=== PATIENT | female | born 1950 | race Caucasian/White ===

== ENCOUNTER 2019-09-12 15:11 | Emergency (ER) | payer MEDICARE, SELFPAY ==
--- NOTE | ~2019-09-12 | CT_ITS ---
EXAMINATION: CT abdomen pelvis w con DATE: 09/12/2019 16:45 INDICATION: Left flank pain, abdominal pain for 3 days TECHNIQUE: Computed tomography (CT) of the abdomen and pelvis was performed with 100 cc Omnipaque 350 intravenous contrast. Automated exposure control and iterative reconstruction technique were employe d. Exam dose: 330.38 mGy-cm total exam DLP. COMPARISON: None. FINDINGS: The lung bases are clear of infiltrate or consolidation. Right lower lobe calcified pulmona ry granuloma. Normal heart size. No pericardial or pleural effusion. Small sliding hiatal hernia. The liver, gallbladder, bile ducts, spleen, pancreas, pancreatic duct, and adrenal glands are unremar kable. There are a couple of probable right renal cysts, the larger cyst measuring 8 mm. No urinary t ract calculus or hydroureteronephrosis. Normal caliber of the abdominal aorta. There is atherosclerotic calcification of the abdominal aorta and iliac arteries. No intraperitoneal or retroperitoneal or pelvic mass lesion or adenopathy or asci sahra. The urinary bladder, uterus and adnexal areas are unremarkable. No bowel obstruction, bowel wall thickening, pneumatosis or intraperitoneal free air. Included skeletal structures are unremarkable. IMPRESSION: Small sliding hiatal hernia Reviewed, dictated and finalized at [facility]. Reviewed, dictated and finalized at [facility]. IMPRESSION: Small sliding hiatal hernia
[2019-09-12 15:12] VITALS: BP 141/100; PULSE 58; RESP 18; TEMP 36.8; O2SAT 100
--- NOTE | 2019-09-12 15:42 | ED.BACK ---
HPI - Back Pain/Injury General Chief Complaint: Back Pain/Injury Stated Complaint: L flank pain x 3 days Time Seen by Provider: 09/12/19 15:28 Source: patient Mode of arrival: ambulatory Limitations: no limitations History of Present Illness HPI Narrative: This is a 69 year old female that presents to the ER for left sided mid back pain x 3 days. Reports no known injury or trauma. Reports the pain has been a constant dull ache. She has been taking Tylenol at home with some relief. Reports the pain radiates to the left side of her abdomen. Denies fever, nausea, vomiting, dysuria, or hematuria. Related Data Home Medications Medication Instructions Recorded Confirmed atorvastatin 09/12/19 omeprazole 09/12/19 valacyclovir 09/12/19 Allergies Allergy/AdvReac Type Severity Reaction Status Date / Time No Known Allergies Allergy Mild Verified 09/12/19 15:28 Review of Systems Review of Systems: Narrative: CONSTITUTIONAL: Denies fever CARDIOVASCULAR: Denies chest pain RESPIRATORY: Denies dyspnea. GASTROINTESTINAL: Reports abdominal pain. Denies nausea, vomiting, or diarrhea. GENITOURINARY: Denies dysuria or hematuria. MUSCULOSKELETAL: Reports back pain All systems reviewed & are unremarkable except as noted in HPI and below PMFSH Past Medical History Medical History (Updated 09/12/19 @ 17:29 by Lisset Shoemaker PA-C) History of gastroesophageal reflux (GERD) History of hyperlipidemia Family History Family History (Updated 10/08/15 @ 23:19 by DOCTOR UNKNOWN) Mother Hypertension Family history of coronary artery disease Family history of malignant neoplasm of breast in first degree relative Father Cerebrovascular accident Other Diabetes mellitus Social History Social History Alcohol intake: current Gender identity (if verbalized by the patient): Female Exam Narrative: Exam Narrative: GENERAL: Well-appearing, well-nourished, and in no acute distress. HEAD: Normocephalic, atraumatic. EYES: EOMI. CHEST: Clear to auscultation. No respiratory distress. No wheezes rales or rhonchi HEART: Regular rate and rhythm. No murmur heard. Normal peripheral pulses. ABDOMEN: Soft, nondistended, normal active bowel sounds. No tenderness to palpation of the left side of the abdomen, without guarding BACK: No midline spinal tenderness EXTREMITIES: Normal range of motion. No edema. SKIN: Warm, dry, no rash. NEURO: No focal deficits. Alert and oriented x3. PSYCH: Normal mood and affect Course Vital Signs Vital signs: Vital Signs Temperature 98.3 F 09/12/19 15:12 Pulse Rate 58 L 09/12/19 15:12 Respiratory Rate 18 09/12/19 15:12 Blood Pressure 141/100 H 09/12/19 15:12 Pulse Oximetry 100 09/12/19 15:12 Temperature 98.3 F 09/12/19 15:12 Pulse Rate 58 L 09/12/19 15:12 Respiratory Rate 18 09/12/19 15:12 Blood Pressure 141/100 H 09/12/19 15:12 Pulse Oximetry 100 09/12/19 15:12 MDM - Back Pain/Injury MDM Narrative Medical decision making narrative: Patient presents the emergency department for left-sided back pain radiating to the abdomen x3 days. Patient is afebrile and nontoxic-appearing. CBC is without acute findings. Metabolic panel without concerning changes. Lipase is not elevated. UA without evidence of infection. D-dimer is not elevated. CT scan abdomen and pelvis is without acute findings. Patient was updated on case findings. Has an appointment to follow-up with her primary in 3 days. Patient is stable and felt appropriate for further outpatient evaluation. She was given warnings to return to the ER Lab Data Attestation: I reviewed the patient's lab results. Result diagrams: 09/12/19 15:50 09/12/19 15:50 Labs: Lab Results 09/12/19 09/12/19 09/12/19 Range/Units 15:50 15:50 15:50 WBC 6.5 (4.5-10.0) K/mm3 RBC 4.57 (4.2-5.4) M/mm3 Hgb 14.5 (12.0-15.0) g/dL Hct 43.2 (37.0-47.0) % MCV 94.5 (80-100) f
[2019-09-12 15:56] LABS: Basophils Absolute Auto 0.1 K/mm3 (0.0-0.1); Basophils Percent Auto 0.8 % (0.2-1.2); Eosinophils Absolute Auto 0.1 K/mm3 (0-0.3); Eosinophils Percent Auto 1.2 % (0-4.4); Hematocrit 43.2 % (37.0-47.0); Hemoglobin 14.5 g/dL (12.0-15.0); Immature Granulocyte Absolute 0.01 K/mm3 (0.00-0.031); Immature Granulocyte Percent A 0.2 % (0-0.5); Lymphocytes Absolute Auto 2.04 K/mm3 (0.9-3.2); Lymphocytes Percent Auto 31.4 % (18.3-44.2); Mean Corpuscular HGB Conc 33.6 g/dl (32-36); Mean Corpuscular Hemoglobin 31.7 pg (26-34); Mean Corpuscular Volume 94.5 fl (80-100); Mean Platelet Volume 12.1 fl (7.4-10.4); Monocytes Absolute Auto 0.4 K/mm3 (0.1-0.6); Monocytes Percent Auto 6.8 % (2.6-8.5); Neutrophils Absolute Auto 3.9 K/mm3 (1.3-6.7); Neutrophils Percent Auto 59.6 % (45.5-73.1); Platelet Count Result 204 k/mm3 (150-375); Red Blood Count 4.57 M/mm3 (4.2-5.4); Red Cell Distribution Width 13.6 % (11.5-14.5); White Blood Count 6.5 K/mm3 (4.5-10.0)
[2019-09-12 15:59] LABS: Add Urine Microscopic? NO; Appearance Urine Clear (Clear); Bilirubin Urine Negative (Negative); Blood Urine Negative (Negative); Color Urine Colorless (Yellow); Glucose Urine UA Negative (Negative); Ketones Urine Negative (Negative); Leukocyte Esterase Ur Negative LEU/UL (Negative); Nitrate Urine Negative (Negative); Protein Urine Negative (Negative); Specific Grav Ur 1.004 (1.001-1.035); Urobilinogen Urine Negative mg/dL (<2.0)
[2019-09-12 16:07] LABS: Alanine Aminotransferase 38 U/L (4-35); Albumin Level 4.4 g/dL (3.5-5.1); Alkaline Phosphatase 85 U/L (38-126); Aspartate Amino Transferase 42 U/L (14-36); Bilirubin,Total 0.5 mg/dL (0.2-1.3); Blood Urea Nitrogen 18 mg/dL (7-17); Calcium 9.1 mg/dL (8.4-10.2); Carbon Dioxide 30 mmol/L (22-30); Chloride 98 mmol/L (98-107); Estimated CRCL calculation 53 ml/min; Estimated Glomerular Filt Rate > 60; Glucose 107 mg/dL (65-105); Lipase 102 U/L (23-300); Potassium 4.3 mmol/L (3.4-5.0); Sodium 136 mmol/L (137-145)
[2019-09-12 16:09] LABS: D Dimer 0.27 ug/mL (<0.48)
[2019-09-12 17:41] VITALS: BP 139/89; PULSE 75; RESP 15; O2SAT 100
== END 2019-09-12 17:42 | disposition home or self-care (01) ==
PROVIDERS: Physician Assistant; Emergency Provider Emergency Medicine; PCP Internal Medicine
DX: M54.6 Pain in thoracic spine (principal); E78.5 Hyperlipidemia, unspecified; K21.9 Gastro-esophageal reflux disease without esophagitis; K44.9 Diaphragmatic hernia without obstruction or gangrene
CPT/HCPCS: 36415; 74177; 80053; 81003; 83690; 85025; 85380; 99284; Q9967

== ENCOUNTER 2019-12-31 14:10 | Emergency (ER) | payer MEDICARE, SELFPAY ==
--- NOTE | 2019-12-31 14:19 | ED.GENADULT ---
HPI - General Adult General Chief complaint: Ear Stated complaint: ear pain/popping Time Seen by Provider: 12/31/19 14:20 Source: patient Mode of arrival: ambulatory Limitations: no limitations History of Present Illness HPI narrative: 69-year-old female patient presents to the [facility] with complaints of bilateral ear fullness. Patient states she has been having a roaring noise to bilateral ears. Patient states that kind of feels like she is underwater. Patient states she is also had a little bit of a stuffy and runny nose as well as some watery eyes. Denies any itching to the eyes. Denies any fever, body aches or chills. Denies any sore throat, coughing, chest pain or shortness of breath. Related Data Home Medications Medication Instructions Recorded Confirmed atorvastatin 20 mg DAILY 09/12/19 Adult Aspirin 81 mg DAILY 12/31/19 12/31/19 Allergies Allergy/AdvReac Type Severity Reaction Status Date / Time No Known Allergies Allergy Mild Verified 09/12/19 15:28 Review of Systems Review of Systems: Narrative: CONSTITUTIONAL: Denies fever, chills, or sweats. EYES: Denies visual changes, redness, or discharge. ENT: Positive rhinorrhea, congestion, denies sore throat, positive bilateral otalgia. CARDIOVASCULAR: Denies chest pain, palpitations, or edema. RESPIRATORY: Denies cough or dyspnea. GASTROINTESTINAL: Denies abdominal pain, nausea, vomiting, or diarrhea. GENITOURINARY: Denies dysuria or hematuria. SKIN: Denies rash or itching. MUSCULOSKELETAL: Denies back pain, joint pain, or myalgia. NEUROLOGIC: Denies headache, numbness, or weakness. PSYCHIATRIC: Denies anxiety or depression. [facility] Past Medical History Medical History History of gastroesophageal reflux (GERD) History of hyperlipidemia Family History Family History Mother Hypertension Family history of coronary artery disease Family history of malignant neoplasm of breast in first degree relative Father Cerebrovascular accident Other Diabetes mellitus Social History Social History Alcohol intake: current Gender identity (if verbalized by the patient): Female Comments At the time of my signature I agree with nursing past medical history, surgical, social, and family history. There is no relevant family history pertinent to the presenting complaint. Exam Narrative: Exam Narrative: GENERAL: Well-appearing, well-nourished, and in no acute distress. HEAD: Normocephalic, atraumatic. EYES: PERRLA and EOMI. ENT: Nares with erythema and edema noted bilaterally, patent, no rhinorrhea or epistaxis. Mucous membranes moist. Posterior pharynx with no erythema, tonsillar edema, exudates or lesions present. Bilateral TMs do have some fluid noted behind the tympanic membrane. NECK: Supple. No lymphadenopathy CHEST: Clear to auscultation. No respiratory distress. HEART: Regular rate and rhythm. No murmur heard. Normal peripheral pulses. ABDOMEN: Soft, nontender, nondistended, normal active bowel sounds. EXTREMITIES: Normal range of motion. No edema. SKIN: Warm, dry, no rash. NEURO: No focal deficits. Alert and oriented x3. Course Vital Signs Vital signs: Vital Signs Temperature 36.3 C L 12/31/19 14:23 Pulse Rate 59 L 12/31/19 14:23 Respiratory Rate 18 12/31/19 14:23 Blood Pressure 146/80 H 12/31/19 14:23 Pulse Oximetry 100 12/31/19 14:23 Temperature 36.3 C L 12/31/19 14:25 Pulse Rate 59 L 12/31/19 14:25 Respiratory Rate 18 12/31/19 14:25 Blood Pressure 146/80 H 12/31/19 14:25 Pulse Oximetry 100 12/31/19 14:25 Vital signs reviewed. The patient has been informed that they may have pre-hypertension or Hypertension based on a BP reading in the department. I recommend that the patient call the primary care provider listed on their discharge instructions
[2019-12-31 14:23] VITALS: BP 146/80; PULSE 59; RESP 18; TEMP 36.3; O2SAT 100
[2019-12-31 14:25] VITALS: BP 146/80; PULSE 59; RESP 18; TEMP 36.3; O2SAT 100
== END 2019-12-31 14:37 | disposition home or self-care (01) ==
PROVIDERS: Emergency Provider Nurse Practitioner Family; PCP Internal Medicine
DX: H93.93 Unspecified disorder of ear, bilateral (principal); K21.9 Gastro-esophageal reflux disease without esophagitis; E78.5 Hyperlipidemia, unspecified
CPT/HCPCS: 99213; G0463

== ENCOUNTER 2021-01-20 15:00 | Emergency (ER) | payer MEDICARE, SELFPAY ==
--- NOTE | ~2021-01-20 | XR_ITS ---
EXAMINATION: XR lumbar spine 2-3V EXAM DATE: 01/20/2021 15:56 INDICATION: Low back pain after heavy lifting Dec./pain right side. TECHNIQUE: Lumber spine frontal, lateral, lateral L5-S1 projections for interpretation. There is no prior study for comparison. FINDINGS: There is mild compression fracture of T12 vertebral body at the superior endplate, age ind eterminate. Mild to moderate disc disease at T12-L1. Mild disc disease at other lumbar levels. There is moderate lower lumbar facet arthropathy. Sacrum, sacroiliac joints, sacral arcuate lines are intac t. Paraspinal soft tissue is unremarkable. IMPRESSION: 1. T12 age-indeterminate compression fracture. Reviewed, dictated and finalized at [facility]
[2021-01-20 15:20] VITALS: BP 132/77; PULSE 57; RESP 16; TEMP 36.3; O2SAT 100
--- NOTE | 2021-01-20 15:31 | ED.BACK ---
HPI - Back Pain/Injury General Chief Complaint: Back Pain/Injury Stated Complaint: Lower Back Pain Source: patient and RN notes reviewed Mode of arrival: ambulatory History of Present Illness HPI Narrative: This is a 70-year-old female that presented to urgent care with lower back pain to the right side in [facility]. According to the patient on hollowing she was lifting sarah and twisted her body and has been experiencing lower back pain since pain. Patient has used heat with cold Biofreeze and ibuprofen while at home with no improvement. Patient was requesting a x-ray, x-ray completed. She will be sent home with ibuprofen Flexeril and a small dose of Ellsworth. The patient denies SOB, CP, palpitation, extremity numbness, lightheadedness, dizziness, constipation, diarrhea, no neurovascular deficiencies, incontinence, no shooting radiation pains down her lower extremities chills, or fever. She notes that she experienced the most pain when standing upright. She does not have a history of prior back pain MD elicited complaint: back pain and back injury Related Data Home Medications Medication Instructions Recorded Confirmed atorvastatin 20 mg DAILY 09/12/19 01/20/21 Adult Aspirin 81 mg DAILY 12/31/19 01/20/21 nitroglycerin 0.4 mg SUBLINGUAL PRN PRN 01/20/21 01/20/21 omeprazole 20 mg PO DAILY 01/20/21 01/20/21 Allergies Allergy/AdvReac Type Severity Reaction Status Date / Time No Known Allergies Allergy Mild Verified 01/20/21 15:19 Review of Systems Review of Systems: A 14 organ system Review of Systems was performed and pertinent positives included in the HPI, otherwise remaining ROS is negative. [facility] Past Medical History Medical History History of gastroesophageal reflux (GERD) History of hyperlipidemia Family History Family History Mother Hypertension Family history of coronary artery disease Family history of malignant neoplasm of breast in first degree relative Father Cerebrovascular accident Other Diabetes mellitus Social History Social History Alcohol intake: current Gender identity (if verbalized by the patient): Female Exam Narrative: GENERAL: This is a well-nourished, well-developed patient, in no apparent distress. HEAD: normocephalic, atraumatic. EYES: PERRL. Sclera clear/white. Vision is grossly intact. EARS: External ears normal, auditory canals clear and without drainage, TMs normal without perforation. Hearing grossly intact. NOSE: External nose normal with no obvious nasal discharge, nares without redness, no rhinorrhea. THROAT: Mucous membranes moist, posterior pharynx clear. NECK: Neck supple, non-tender without lymphadenopathy, masses or thyromegaly. CARDIOVASCULAR: Regular rate and rhythm without murmurs, gallops, or rubs. RESPIRATORY: Clear to auscultation. Breath sounds equal bilaterally. No wheezes, rales, or rhonchi. GASTROINTESTINAL: Abdomen soft, non-tender, nondistended. Bowel sounds are active. No hepato-splenomegaly, or palpable masses. No guarding. SKIN: warm, intact with no suspicious lesions or rash, good texture and turgor. NEURO: awake, alert, and oriented to person, place and time. There were no obvious focal neurologic abnormalities. Steady gait EXTREMITIES: Normal range of motion. No edema. No calf tenderness. Negative Homans sign bilaterally. BACK: Nontender without deformity or crepitance. No flank tenderness. Course Course Emergency Course: Patient will be sent home with Flexeril, ibuprofen and a short dose of Ellsworth for back pain. Instructed to continue hot cold packs and any exercise that with improve her back pain she will also need to follow-up with orthopedic surgeon Vital Signs Vital signs: Vital Signs Temperature 97.3 F L 01/20/21 15:20 Pulse Rate 57 L 01/20/21 15:20 Respirato
== END 2021-01-20 16:30 | disposition home or self-care (01) ==
PROVIDERS: Emergency Provider Nurse Practitioner; PCP Internal Medicine
DX: M54.50 Low back pain, unspecified (principal); M48.54XA Collapsed vertebra, not elsewhere classified, thoracic region, initial encounter for fracture; G21.9 Secondary parkinsonism, unspecified; E78.5 Hyperlipidemia, unspecified
CPT/HCPCS: 72100; 99213; G0463

== ENCOUNTER 2021-08-19 15:11 | Emergency (ER) | payer MEDICARE, SELFPAY ==
--- NOTE | 2021-08-19 15:23 | ED.URI ---
HPI - URI/Sore Throat General Chief Complaint: Upper Respiratory Infection Stated Complaint: sorethroat Time Seen by Provider: 08/19/21 15:27 Source: patient Mode of arrival: ambulatory Limitations: no limitations History of Present Illness HPI Narrative: Ms. Pozo is a 71-year-old female patient presenting to the clinic today with complaints of sore throat and nasal drainage x3 days. She denies any fever or chills. She denies any known diabetic with COVID, flu, or strep. Related Data Home Medications Medication Instructions Recorded Confirmed atorvastatin 20 mg tablet 20 tablet DAILY 08/19/21 08/19/21 omeprazole 20 mg capsule,delayed 20 cap DAILY 08/19/21 08/19/21 release Allergies Allergy/AdvReac Type Severity Reaction Status Date / Time No Known Allergies Allergy Mild Verified 08/19/21 15:51 Review of Systems Review of Systems: Pertinent positives per HPI. Patient denies any fever, chills, rash, headache, visual changes, dizziness, cough, runny nose, shortness of breath, chest pain, palpitations, nausea, vomiting, diarrhea, constipation, abdominal pain, or any urinary issues. [facility] Past Medical History Medical History History of gastroesophageal reflux (GERD) History of hyperlipidemia Family History Family History Mother Hypertension Family history of coronary artery disease Family history of malignant neoplasm of breast in first degree relative Father Cerebrovascular accident Other Diabetes mellitus Social History Social History Alcohol intake: current Gender identity (if verbalized by the patient): Female Comments At the time of my signature, I reviewed and agree with the nursing past medical, surgical, social, and family history. There is no relevant family history pertinent to the patient complaint. Exam Narrative: General: Well-developed, well nourished, in no apparent distress Head: Normocephalic, atraumatic Eyes: Pupils equally round and reactive to light bilaterally, EOM intact, sclera and conjunctive clear, no discharge, lids normal Ears: TMs intact and clear, ear canals clear, no drainage, grossly hearing normal. Nose: Nares patent, clear nasal discharge, moderate inflammation, no sinus tenderness. Mouth: Oropharynx without lesions or masses, good dentition, MMM. Postnasal drip Neck: Supple, trachea midline, no enlargement of anterior or posterior cervical nodes, no thyroid masses or goiter palpable. Cardio: Regular rate and rhythm, s1 and s2 normal, no murmur appreciated. Resp: Clear to auscultation bilaterally anteriorly and posteriorly, no rhonchi, rales, wheezing or rubs Course Course Emergency Course: Portions of this record may have been created with voice recognition software. Level of Care: Express Care Visit Vital Signs Vital signs: Vital Signs Temperature 36.7 C 08/19/21 15:32 Pulse Rate 58 L 08/19/21 15:32 Respiratory Rate 18 08/19/21 15:32 Blood Pressure 132/72 08/19/21 15:32 Pulse Oximetry 100 08/19/21 15:32 Oxygen Delivery Room Air 08/19/21 15:32 Temperature 36.7 C 08/19/21 15:32 Pulse Rate 58 L 08/19/21 15:32 Respiratory Rate 18 08/19/21 15:32 Blood Pressure 132/72 08/19/21 15:32 Pulse Oximetry 100 08/19/21 15:32 Oxygen Delivery Room Air 08/19/21 15:32 Vital signs reviewed MDM - URI/Sore Throat MDM Narrative Medical decision making narrative: At the time of visit patient is resting comfortably on the exam table. COVID and everything was negative in the clinic. Supportive measures were discussed with the patient she voiced understanding of discharge instructions. I will go ahead and give her a course of prednisone to help with the congestion. Differential Diagnosis Differential diagnosis: Likely upper respirator
[2021-08-19 15:32] VITALS: BP 132/72; PULSE 58; RESP 18; TEMP 36.7; O2SAT 100
== END 2021-08-19 16:20 | disposition home or self-care (01) ==
PROVIDERS: Emergency Provider Nurse Practitioner Family
DX: R09.82 Postnasal drip (principal); J02.9 Acute pharyngitis, unspecified; J06.9 Acute upper respiratory infection, unspecified; Z20.822 Contact with and (suspected) exposure to COVID-19; K21.9 Gastro-esophageal reflux disease without esophagitis; E78.5 Hyperlipidemia, unspecified
CPT/HCPCS: 87081; 87426; 87880; 99213; C9803; G0463

== ENCOUNTER 2022-01-11 11:07 | Emergency (ER) | payer MEDICARE, SELFPAY ==
[2022-01-11 11:24] VITALS: BP 126/65; PULSE 78; RESP 18; TEMP 38; O2SAT 96
--- NOTE | 2022-01-11 11:45 | ED.URI ---
HPI - URI/Sore Throat General Chief Complaint: Upper Respiratory Infection Stated Complaint: cough,sorethroat Time Seen by Provider: 01/11/22 11:45 Source: patient Mode of arrival: ambulatory Limitations: no limitations History of Present Illness HPI Narrative: 71 year female presents with with complaint runny nose, sore throat, nasal congestion, cough, fatigue, low-grade fevers for 4 days. Taking [id number] with little relief. States that her was sick prior to her but felt better after a few days. Reports can not seem to kick It . alert and talkative. No respiratory distress. All systems reviewed and negative except as noted above. Related Data Home Medications Medication Instructions Recorded Confirmed atorvastatin 20 mg tablet 20 tablet DAILY 08/19/21 01/11/22 omeprazole 20 mg capsule,delayed 20 cap DAILY 08/19/21 01/11/22 release aspirin 81 mg tablet,delayed 81 mg PO DAILY 01/11/22 01/11/22 release (Adult Low Dose Aspirin) cholecalciferol (vitamin D3) 250 250 mcg PO DAILY 01/11/22 01/11/22 mcg (10,000 unit) tablet Allergies Allergy/AdvReac Type Severity Reaction Status Date / Time No Known Allergies Allergy Mild Verified 01/11/22 11:50 Review of Systems Review of Systems: CONSTITUTIONAL: Report fever, chills, or sweats. EYES: Denies visual changes, redness, or discharge. ENT: reports rhinorrhea, congestion, sore throat, or otalgia. CARDIOVASCULAR: Denies chest pain, palpitations, or edema. RESPIRATORY: reports cough. Denies dyspnea. GASTROINTESTINAL: Denies abdominal pain, nausea, vomiting, or diarrhea. GENITOURINARY: Denies dysuria or hematuria. SKIN: Denies rash or itching. MUSCULOSKELETAL: Denies back pain, joint pain, or myalgia. NEUROLOGIC: Denies headache, numbness, or weakness. PSYCHIATRIC: Denies anxiety or depression. All other systems reviewed are negative, except as documented in HPI. [facility] Past Medical History Medical History History of gastroesophageal reflux (GERD) History of hyperlipidemia Family History Family History Mother Hypertension Family history of coronary artery disease Family history of malignant neoplasm of breast in first degree relative Father Cerebrovascular accident Other Diabetes mellitus Social History Social History Alcohol intake: current Gender identity (if verbalized by the patient): Female Comments At time of signature, agree with nursing past medical, surgical, social and family history. There is no relevant family history pertinent to the presenting complaint. Exam Narrative: GENERAL: This is a well-nourished, well-developed patient, in no apparent distress. HEAD: normocephalic, atraumatic. EYES: PERRL. Sclera clear/white. Vision is grossly intact. EARS: External ears normal, auditory canals clear and without drainage, TMs normal without perforation. Hearing grossly intact. NOSE: External nose normal with clear nasal drainage, erythema to both nares without edema, moderate congestion. No sinus tenderness. THROAT: Mucous membranes moist . Mild erythema to posterior neck is without swelling. No Exudates. NECK: Neck supple, non-tender without lymphadenopathy, masses or thyromegaly. CARDIOVASCULAR: Regular rate and rhythm without murmurs, gallops, or rubs. RESPIRATORY: Clear to auscultation. Breath sounds equal bilaterally. No wheezes, rales, or rhonchi. SKIN: warm, Dry, intact with no suspicious lesions or rash, good texture and turgor. NEURO: awake, alert, and oriented to person, place and time. There were no obvious focal neurologic abnormalities. EXTREMITIES: No joint tenderness, effusion, or edema noted. Course Course Level of Care: Express Care Visit Vital Signs Vital signs: Vital Signs Temperature 38.0
== END 2022-01-11 12:04 | disposition home or self-care (01) ==
PROVIDERS: Emergency Provider Nurse Practitioner Family
DX: U07.1 COVID-19 (principal); K21.9 Gastro-esophageal reflux disease without esophagitis; E78.5 Hyperlipidemia, unspecified
CPT/HCPCS: 87426; 87804; 87880; 99213; C9803; G0463

== ENCOUNTER 2023-09-30 18:38 | Emergency (ER) | payer MEDICARE, SELFPAY ==
[2023-09-30 18:47] VITALS: BP 141/91; PULSE 74; RESP 18; TEMP 36.4; O2SAT 97
--- NOTE | 2023-09-30 19:34 | ED.URI ---
HPI - URI/Sore Throat General Chief Complaint: Upper Respiratory Infection Stated Complaint: Sore Throat Source: patient Mode of arrival: ambulatory Limitations: no limitations History of Present Illness HPI Narrative: 73-year-old female presents to [facility] complains of 2 week history of sore throat, chills, cough, congestion and fatigue. Patient reports that she had 1 day of low-grade fever of 99.5. Patient has been taking [id number] DayQuil using Chloraseptic spray with little relief. Patient is nonsmoker. Patient denies recent travel. MD elicited complaint: sore throat, rhinorrhea and nasal congestion Onset (ago): week(s) (2) Able to tolerate fluids by mouth: Yes Exacerbating factors: nothing Relieving factors: nothing Related Data Home Medications Medication Instructions Recorded Confirmed atorvastatin 20 mg tablet 20 tablet DAILY 08/19/21 09/30/23 omeprazole 20 mg capsule,delayed 20 cap DAILY 08/19/21 09/30/23 release aspirin 81 mg tablet,delayed 81 mg PO DAILY 01/11/22 09/30/23 release (Adult Low Dose Aspirin) cholecalciferol (vitamin D3) 250 250 mcg PO DAILY 01/11/22 09/30/23 mcg (10,000 unit) tablet benazepril 5 mg tablet 5 mg PO DAILY 09/30/23 09/30/23 Allergies Allergy/AdvReac Type Severity Reaction Status Date / Time No Known Allergies Allergy Mild Verified 09/30/23 18:50 Review of Systems Constitutional: Constitutional: Reports chills, Reports fatigue, Reports fever(s) and Denies weakness ENT: Denies dysphagia, Denies vertigo, Denies dizziness, Denies epistaxis, Reports nasal congestion and Reports sore throat Respiratory: Respiratory: Reports cough, Denies dyspnea and Denies wheezing Gastrointestinal: Gastrointestinal: Denies diarrhea, Denies nausea and Denies vomiting Musculoskeletal: Musculoskeletal: Denies arthralgias and Denies joint swelling Integumentary/Breasts: Skin/Breast: Denies pruritus, Denies erythema, Denies rash and Denies skin ulcer Neurologic: Denies dizziness, Denies syncope and Denies headache(s) [facility] Past Medical History Medical History History of gastroesophageal reflux (GERD) History of hyperlipidemia Family History Family History Mother Hypertension Family history of coronary artery disease Family history of malignant neoplasm of breast in first degree relative Father Cerebrovascular accident Other Diabetes mellitus Social History Social History Alcohol intake: current Gender identity (if verbalized by the patient): Female Comments At time of signature, I agree with nursing past medical, surgical, social and family history. There is no relevant family history pertinent to the presenting complaint. Exam Const: General: healthy appearing and no acute distress Nutritional Appearance: well nourished Orientation/consciousness: patient oriented x3 Limitations: no limitations HENMT: Head: normal to inspection Ears: external ears normal, TM's normal bilaterally and EAC's normal Face and sinus: normal facial exam Mouth: Yes Normal oral and palatal mucosa present Teeth and gingiva: dentition normal Throat: posterior oropharynx normal and uvula midline Eyes: Conjunctivae: conjunctivae normal Neck: Neck: normal visual inspection Resp: Effort & Inspection: normal respiratory effort and not labored Auscultation: clear to auscultation bilaterally, no crackles, no rales, no rhonchi and no wheezes Cardio: Rate: regular rate Rhythm: regular rhythm Heart sounds: no murmurs Skin: General skin exam: normal color Rashes: no rashes Neuro: General: patient oriented x3 Speech: normal speech Gait exam (Neuro): Normal gait present Psych: Affect: normal affect Attitude: cooperative Course Course Level of Care: Express [facility] Visit Vital Signs Vital signs: Vital Sign
[2023-09-30 19:36] LABS: EDSTREPNEGPOS1 Presumptive Negative
== END 2023-09-30 19:45 | disposition home or self-care (01) ==
PROVIDERS: Emergency Provider Nurse Practitioner Family
DX: J06.9 Acute upper respiratory infection, unspecified (principal); Z20.822 Contact with and (suspected) exposure to COVID-19; K21.9 Gastro-esophageal reflux disease without esophagitis; E78.5 Hyperlipidemia, unspecified; Z79.82 Long term (current) use of aspirin
CPT/HCPCS: 87081; 87426; 87880; 99213; G0463